=== PATIENT | female | born 1975 | race Asian ===

== ENCOUNTER 2019-06-05 20:14 | Emergency (ER) | payer BC ==
[~2019-06-05] VITALS: Ht 160 cm; Wt 54.9 kg
[2019-06-05 20:24] VITALS: Ht 160 cm; Wt 54.9 kg
[2019-06-05 21:05] VITALS: BP 120/60
== END 2019-06-05 21:05 | disposition home or self-care (01) ==
LOC: ED 20:14
DX: H81.09 Meniere's disease, unspecified ear (principal)
CPT/HCPCS: J8597